=== PATIENT | male | born 2000 | race Caucasian/White ===

== ENCOUNTER 2024-08-24 11:04 | Emergency (ER) | payer OTHER ==
[~2024-08-24] VITALS: Ht 185.4 cm; Wt 158.1 kg
[2024-08-24 11:24] VITALS: BP 150/80; PULSE 95; TEMP 98.1; O2SAT 97
[2024-08-24 11:50] VITALS: RESP 16
== END 2024-08-24 14:21 | disposition home or self-care (01) ==
LOC: ER 11:05
DX: A08.4 Viral intestinal infection, unspecified (principal)
CPT/HCPCS: 87502; 87503; 99283